=== PATIENT | female | born 1990 | race Caucasian/White ===

== ENCOUNTER 2023-06-06 23:30 | Inpatient (IN) | payer MEDICARE, MEDICAID, SELFPAY ==
[2023-06-06 23:34] VITALS: BP 118/62; PULSE 89; RESP 20; TEMP 36.6; O2SAT 100
[2023-06-06 23:36] VITALS: BMI 23.1
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
--- NOTE | 2023-06-07 02:11 | PC.NURSE ---
ER NURSE REPORTED THAT PT WAS DIABETIC, WHEN THIS RN ASKED PT IF SHE WAS DIABETIC SHE STATED WELL I TAKE SOMETHING, SOMETIMES I THINK I'M DIABETIC BUT I THINK TODAY MAYBE I'M NOT. ER NURSE REPORTS BLOOD GLUCOSES AVERAGING 300. REVIEWED PTS MEDICATIONS THAT SHOW REBELLSUS 14 MG DAILY. NEW ORDER RECEIVED FROM DR. FERNANDES TO START ACCU CHECKS AC AND HS, MEDICATION ORDER PLACED.
--- NOTE | 2023-06-07 03:25 | PC.NURSE ---
WHEN DOING INVENTORY OF PT BELONGINGS RN/NT FOUND A LARGE MONTHY PILL CONTAINER WITH UNKNOWN MEDICATIONS IN IT. PLACED IN PIXIS WITH PT NAME TO RETURN ONCE PT IS DISCHARGED.
[2023-06-07 06:00] VITALS: BP 96/62; PULSE 96; RESP 16; TEMP 36.3; O2SAT 99
[2023-06-07 09:12] LABS: Glucose Point of Care 290 mg/dL (70-110)
--- NOTE | 2023-06-07 09:41 | PC.NURSE ---
PT CURRENTLY DENIES SI/HI/AH/VH. PT STATES IT IS THE OTHER WAY AROUND. PEOPLE ARE AFTER ME AND MY FAMILY. PEOPLE WANT TO HURT MY FAMILY AND ME. PT ENDORSED DEPRESSION RATING IT A 5/10 ON A 0-10 SCALE WHERE 0 MEANS NONE AT ALL AND 10 MEANS THE WORST. PT WAS WILLING AND COOPERATIVE WITH ASSESSMENT.
[2023-06-07] MEDS: sertraline 100 mg Tablet PO (10:11)
[2023-06-07] MEDS: pantoprazole DR 40 mg Tablet PO (10:11)
[2023-06-07] MEDS: levothyroxine 50 mcg Tablet PO (10:11)
[2023-06-07 13:03] LABS: Glucose Point of Care 344 mg/dL (70-110)
[2023-06-07] MEDS: insulin lispro 100 unit/1 mL SUBCUT (13:16)
[2023-06-07 14:00] VITALS: BP 110/72; PULSE 72; RESP 20; TEMP 36.9; O2SAT 99
[2023-06-07] MEDS: OLANZapine 5 mg ODT PO (14:39)
--- NOTE | 2023-06-07 17:42 | W.PM.NPUH&PS ---
Providers/Chief Complaint Admitting Physician: Barak Lanier MD Chief Complaint: Hearing Voices HPI NPU History of Present Illness Jany Tadeo is a 32 year old female who presented to [facility] emergency department on 06/06/2023 having been brought in by emergency medical services. The patient had endorsed hearing voices and had reported having feelings that people around her are trying to steal her farm and her home and that she reported feeling that she was involved in the middle of a drug war. She reported that she is not Muslim and does not know why they would be attacking me . Patient was admitted to the neuropsychiatric unit for further evaluation and treatment. The patient reports that she is fearful that others around her are going to hurt herself. She had endorsed that hospitals were somehow involved in this plot to harm her. She reports that she wishes to be transferred as she had recently been hospitalized at [facility] a few weeks ago and was set to enter into an extended living facility. Patient reported great Nations will fall . She had endorsed feeling depressed and anxious about her situation. Patient reports that she does not feel safe anywhere. The patient had tested positive for amphetamines on admission but states that she was not using methamphetamine. She states that she had recently slept with another person and maybe that is how she had tested positive for it. The patient had reported that she had been noncompliant with her medications (zyprexa) that were given to her in her last hospitalization last month. Patient had reported that she believes that other people are trying to steal something from her. She reports no other drug use at this time despite positive amphetamine on urine drug screen. Inpatient psychiatric history: She reports greater than 10 inpatient hospitalizations. [facility] Outpatient psychiatric history: Unknown Medical history: Hypothyroidism, GERD, type 2 diabetes? Surgical history: None reported Allergies: Amoxicillin, penicillin, sulfa drugs Current medications: Lipitor, levothyroxine 100 mg daily, olanzapine 10 mg at night, omeprazole 20 mg daily, Rybelsus, Zoloft 100 mg daily Drug and alcohol history: Per previous records there is an extended history of methamphetamine abuse with induction of psychosis Social history: She reports living in [facility] with her mother. She reports that she has no children and has never been . She reports that she was adopted at 3 months old as her biological parents had struggled with managing care. She currently lives with her adopted mother and was raised by her maternal grand parent. She has half siblings who she has limited contact with. She had reported a history of learning problems growing up having been diagnosed with dyslexia and ADHD. She had obtained a high school diploma. 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 She did not reveal any past history of sexual physical or emotional abuse. Meds NPU Home Medications Medication Instructions Recorded Confirmed Last Taken Type levothyroxine 100 mcg capsule 100 mcg PO DAILY 06/06/23 06/06/23 Unknown History olanzapine 10 mg tablet 10 mg PO BEDTIME 06/06/23 06/06/23 Unknown History omeprazole 20 mg capsule,delayed 20 mg PO DAILY 06/06/23 06/06/23 Unknown History release pantoprazole 40 mg tablet,delayed 40 mg PO DAILY 06/06/23 06/06/23 Unknown History release atorvastatin 10 mg tablet (Lipitor) 10 mg PO BEDTIME 06/07/23 06/07/23 05/31/23 History semaglutide 14 mg tablet (Rybelsus) 14 mg PO DAILY DIABETES 06/07/23 06/07/23 3 Days Ago History ~06/04/23 sertraline 100 mg tablet (Zoloft) 100 mg PO DAILY 06/07/23 06/07/23 05/31/23 History Allergies Allergy/AdvReac Type Severity Reaction Status Date / Time amoxicillin Allergy Severe ALGY-Anaphy Verified 06/07/23 00:21 laxis Penicillins Allergy Severe ALGY-Anaphy Verified 06/07/23 00:21 laxis sulfacetamide Allergy Severe ALGY-Anaphy Verified 06/07/23 00:21 laxis Mental Status Exam MSE Comments: Patient was extremely guarded on interview. She appeared to be a thin white female who appeared older than her stated age with poor hygiene and a steady gait. There is no evidence of any abnormal involuntary motor movements tics or tremors. There was some evidence of psychomotor slowing. Her speech showed evidence of increased latency with normal volume and dysrhythmic speech. She was tearful throughout the interview. Repeated themes during the interview included feelings that she was being watched. Her mood was described as upset. Her affect was odd. She denied any homicidal or suicidal ideation. There was clear evidence of bizarre delusions. There was significant ideas of reference. She was alert and oriented to person and place but refused to answer questions or regarding date or year. Her insight is poor. Her judgment is poor. Her impulse control appeared limited. Vitals/I&O/Wt Last Vital Signs Temp 98.4 F 06/07/23 14:00 Pulse 72 06/07/23 14:00 Resp 20 H 06/07/23 14:00 BP 110/72 06/07/23 14:00 Pulse Ox 99 06/07/23 14:00 O2 Del Method Room Air 06/07/23 06:00 Weight last 48 hrs Weight 61.235 kg A&P Assessment and plan (1) Psychotic disorder: (2) Substance-induced psychotic disorder: (3) Methamphetamine dependence: Plan 32-year-old white female transferred from [place] with psychosis while positive for methamphetamine use and a history of multiple inpatient psychiatric hospitalizations. 1. Encourage individual, group and milieu therapy. 2. Recommend sober living treatment at the highest level of care to which the patient is willing to commit. 3. Continue q-15 minute checks for safety.? 4.? Restart current medications including zoloft, lipitor, olanzapine and sertraline, Patient placed on mild sliding scale insulin with low carb diet. 5.? Will attempt to gather collateral information. Attestations NPU Medical Necessity Statement*: Inpatient hospitalization is medically necessary and deemed to ?be ?the clinically appropriate intervention ?at this time.? We will monitor/initiate medications and make changes as indicated.? The patient will be in the hospital for over 2 midnights.? The patient?s likely length of stay 7-10 days. Coding Level of Care Code Acute Code for [facility] Fwd Diagnoses Psychotic disorder F29 Substance-induced psychotic disorder F19.959 Methamphetamine dependence F15.20
[2023-06-07 18:04] LABS: Glucose Point of Care 139 mg/dL (70-110)
[2023-06-07] MEDS: OLANZapine 10 mg TABLET PO (20:40)
[2023-06-07] MEDS: atorvastatin 40 mg Tablet 20 MG PO (20:40)
[2023-06-07 20:44] VITALS: BP 98/62; PULSE 80; RESP 16; TEMP 36.8; O2SAT 99
[2023-06-07 20:44] LABS: Glucose Point of Care 151 mg/dL (70-110)
--- NOTE | 2023-06-07 20:57 | PC.NURSE ---
IN ROOM RESTING AROUSES TO VOICE. DENIES PAIN. DENIES SI/HI AND AVH AT THIS TIME. PT IS NOTED TO HAVE A FLAT AFFECT WITH MINIMAL EYE CONTACT. IS OBSERVED TO BE PARANOID. RATES DEPRESSION 0/10 AND ANXIETY 0/10. PT APPEARS TO NO COMPREHEND AT TIMES WHEN RN SPEAKING. PT CONTINUES TO BE PARANOID AND UNTRUSTING OF STAFF AND PEERS AROUND HER. PT STAYS ISOLATED TO ROOM. ENCOURAGED TO INTERACT BUT DECLINES. PT TOOK MEDICATIONS WITHOUT ISSUE. SUPPORT VOICED.
[2023-06-08 06:00] VITALS: BP 125/84; PULSE 66; RESP 16; O2SAT 95
[2023-06-08 08:29] LABS: Glucose Point of Care 218 mg/dL (70-110)
--- NOTE | 2023-06-08 11:39 | PC.NURSE ---
refused scheduled morning meds, offered 3 separate times by nursing staff to take meds, patient refused all 3 times saying no not now, I'm too tired
[2023-06-08 12:18] LABS: Glucose Point of Care 178 mg/dL (70-110)
[2023-06-08] MEDS: insulin lispro 100 unit/1 mL SUBCUT ×2 (12:21→17:40)
[2023-06-08 14:00] VITALS: BP 94/61; PULSE 70; RESP 20; TEMP 36.8; O2SAT 95
[2023-06-08 17:22] LABS: Glucose Point of Care 176 mg/dL (70-110)
--- NOTE | 2023-06-08 17:46 | W.PM.NPUPNS ---
Subjective NPU Subjective: Patient is a 32-year-old white female admitted with psychosis likely secondary to methamphetamine use. She had reported that she felt drowsy and did not wish to further participate in interview. She had stated that she was satisfied about taking her medications. She had an endorsed noncompliance with her Zyprexa prior to her admission. She remained on a sliding scale with considerable elevation in sugars. The patient continued to report feeling fearful that others were trying to kill her. She had continued to complain that ' A great war was coming. Mental Status Exam MSE Comments: Patient was extremely guarded on interview as she was lying in bed and refusing to answer any questions stating that she was drowsy. There is no evidence of any abnormal involuntary motor movements tics or tremors. There was some evidence of psychomotor slowing. Her speech showed evidence of increased latency with normal volume and dysrhythmic speech. She did appear to be responding to internal stimuli. Her mood was described as fine. Her affect was odd and subdued. . She denied any homicidal or suicidal ideation. There was clear evidence of paranoia There was significant ideas of reference. She was alert and oriented to person and place but refused to answer questions or regarding date or year. Her insight is poor. Her judgment is poor. Her impulse control appeared limited. Vitals/I&O/Wt Last Vital Signs Temp 98.2 F 06/08/23 14:00 Pulse 70 06/08/23 14:00 Resp 20 H 06/08/23 14:00 BP 94/61 06/08/23 14:00 Pulse Ox 95 06/08/23 14:00 O2 Del Method Room Air 06/08/23 14:00 Weight last 48 hrs Weight 61.235 kg A&P Assessment and plan (1) Psychotic disorder: (2) Substance-induced psychotic disorder: (3) Methamphetamine dependence: Plan 32-year-old white female transferred from [place] with psychosis while positive for methamphetamine use and a history of multiple inpatient psychiatric hospitalizations. 1. Encourage individual, group and milieu therapy. 2. Recommend sober living treatment at the highest level of care to which the patient is willing to commit. 3. Continue q-15 minute checks for safety.? 4.? Restart current medications including zoloft, lipitor, olanzapine and Synthroid. Patient placed on mild sliding scale insulin with low carb diet. Monitor blood sugars and medical consult for further input. 5.? Will attempt to gather collateral information. Attestations NPU Medical Necessity Statement*: Inpatient hospitalization is medically necessary and deemed to ?be ?the clinically appropriate intervention ?at this time.? We will monitor/initiate medications and make changes as indicated.? ? The patient?s likely length of stay 7-10 days. Coding Level of Care Code Acute Code for [facility] Fwd Diagnoses Psychotic disorder F29 Substance-induced psychotic disorder F19.959 Methamphetamine dependence F15.20
[2023-06-08 20:01] LABS: Glucose Point of Care 191 mg/dL (70-110)
[2023-06-08] MEDS: atorvastatin 40 mg Tablet 20 MG PO (20:18)
[2023-06-08] MEDS: OLANZapine 10 mg TABLET PO (20:18)
[2023-06-08 20:33] VITALS: BP 95/63; PULSE 86; RESP 18; TEMP 36.8; O2SAT 97
[2023-06-09 06:00] VITALS: BP 106/67; PULSE 62; RESP 16; TEMP 36.6; O2SAT 96
[2023-06-09 07:54] LABS: Glucose Point of Care 185 mg/dL (70-110)
[2023-06-09] MEDS: levothyroxine 50 mcg Tablet PO (08:02)
[2023-06-09] MEDS: pantoprazole DR 40 mg Tablet PO (08:02)
[2023-06-09] MEDS: sertraline 100 mg Tablet PO (08:02)
--- NOTE | 2023-06-09 08:39 | PC.NURSE ---
pt came to nurses desk for glass of water. pt asked what her bloodsugar was when asked if she was ready to take her insulin. I informed pt that it was 185 and she had just eaten a full breakfast. pt stated no she did not want to take it because she did not want to ! attempts to talk with her on the importance of taking her medication. pt continued to refused.
--- NOTE | 2023-06-09 12:21 | PC.NURSE ---
patient eligible for 4 units insulin per blood glucose results. patient doesn't want to take the insulin at this time; patient concerned that her blood glucose will bottom out.
[2023-06-09 12:31] LABS: Glucose Point of Care 172 mg/dL (70-110)
[2023-06-09 14:00] VITALS: BP 90/56; PULSE 77; RESP 16; TEMP 36.8; O2SAT 97
--- NOTE | 2023-06-09 14:31 | P.NPUPN_ITS ---
Subjective NPU Subjective: Patient is a 32-year-old white female admitted with psychosis likely secondary to methamphetamine use. Patient remained confused on the milieu. She had reported that she was feeling safer but still stated that she felt that others were trying to harm her. The patient appeared perplexed when the investment underwriter spoke of her past use of methamphetamine. The patient had stated that she was not distracted by her thoughts. She appeared quiet and somewhat isolative on the milieu. She had acknowledged feeling depressed today. Mental Status Exam MSE Comments: Patient was less guarded on interview today. There is no evidence of any abnormal involuntary motor movements tics or tremors. There was some evidence of psychomotor slowing. Her speech was slow and decreased in volume with perio ds of increased latency. She did appear to be responding to internal stimuli. Her mood was described as depressed. Her affect remained odd and subdued. She denied any homicidal or suicidal ideation. There was clear evidence of paranoia. There was significant ideas of reference. She was alert and oriented to person and place but not date or day of the week. Her insight is poor. Her judgment is poor. Her impulse control appeared limited. Vitals/I&O/Wt Last Vital Signs Temp 97.8 F 06/09/23 06:00 Pulse 62 06/09/23 06:00 Resp 16 06/09/23 06:00 BP 106/67 06/09/23 06:00 Pulse Ox 96 06/09/23 06:00 O2 Del Method Room Air 06/09/23 06:00 A&P Assessment and plan (1) Psychotic disorder: (2) Substance-induced psychotic disorder: (3) Methamphetamine dependence: Plan 32-year-old white female transferred from [place] with psychosis while positive for methamphetamine use and a history of multiple inpatient psychiatric hospitalizations. 1. Encourage individual, group and milieu therapy. 2. Recommend sober living treatment at the highest level of care to which the patient is willing to commit. 3. Continue q-15 minute checks for safety.? 4.?Continue zoloft, increase olanzapine 15mg at night. Patient placed on mild sliding scale insulin with low carb diet. Monitor blood sugars and medical consult for further input. 5.? Will attempt to gather collateral information. Attestations NPU Medical Necessity Statement*: Inpatient hospitalization is medically necessary and deemed to ?be ?the clinically appropriate intervention ?at this time.? We will monitor/initiate medications and make changes as indicated.? ? The patient?s likely length of stay 7-10 days. Coding Level of Care Code Acute Code for [facility] Fwd Diagnoses Psychotic disorder F29 Substance-induced psychotic disorder F19.959 Methamphetamine dependence F15.20
[2023-06-09 17:19] LABS: Glucose Point of Care 165 mg/dL (70-110)
[2023-06-09] MEDS: insulin lispro 100 unit/1 mL SUBCUT (18:06)
[2023-06-09] MEDS: OLANZapine 5 mg ODT PO (18:45)
--- NOTE | 2023-06-09 18:46 | PC.NURSE ---
Patient reports anxiety 02/24. administered Zyprexa 5mg ODT to patient. Per patient, vistaril doesn't work well for her.
[2023-06-09] MEDS: OLANZapine 10 mg TABLET PO (20:03)
[2023-06-09] MEDS: atorvastatin 40 mg Tablet 20 MG PO (20:03)
[2023-06-09 20:19] VITALS: BP 115/72; PULSE 76; RESP 16; TEMP 36.9; O2SAT 98
[2023-06-09 20:28] LABS: Glucose Point of Care 252 mg/dL (70-110)
[2023-06-10 06:00] VITALS: BP 101/62; PULSE 69; RESP 18; O2SAT 95
[2023-06-10] MEDS: levothyroxine 50 mcg Tablet PO (08:38)
[2023-06-10] MEDS: pantoprazole DR 40 mg Tablet PO (08:38)
[2023-06-10] MEDS: insulin lispro 100 unit/1 mL SUBCUT ×2 (08:40→18:04)
[2023-06-10 08:44] LABS: Glucose Point of Care 216 mg/dL (70-110)
[2023-06-10 11:51] LABS: Glucose Point of Care 128 mg/dL (70-110)
[2023-06-10 14:00] VITALS: BP 127/88; PULSE 82; RESP 17; TEMP 36.4; O2SAT 99
--- NOTE | 2023-06-10 15:48 | DCPLANNER ---
IMM WAS GIVEN
[2023-06-10] MEDS: OLANZapine 5 mg ODT PO (16:28)
[2023-06-10 16:41] LABS: Bacteria Urine TRACE /hpf; Bilirubin Urine Neg (Negative); Blood Urine Neg (Negative); Glucose Urine UA Norm (Normal); Ketones Urine Negative (Negative); Leukocyte Esterase Urine Negative (Negative); Nitrate Urine Negative (Negative); Protein Urine Neg (Negative); RBC Urine RARE /hpf (0-2); Urine Appearance SL Hazy (CLEAR); Urine Color Light yellow (Yellow); Urobilinogen Urine Norm (Negative); WBC Urine RARE /hpf (0-5)
[2023-06-10 16:42] LABS: pH Urine 5 (5-7)
--- NOTE | 2023-06-10 16:44 | DCPLANNER ---
Imm was printed and given to pt and copy placed in file.
--- NOTE | 2023-06-10 16:45 | W.PM.NPUPNS ---
Subjective NPU Subjective: Patient is a 32-year-old white female admitted with psychosis secondary to methamphetamine use. She had minimized the effects of methamphetamine on her most recent hospitalization here. The patient stated that she was ready to go home. She reports that she had a place to live and would take her medications as prescribed. Patient had stated that she had been receiving outpatient services and reported that these medications had been previously started by a psychiatrist somewhere near [place]. Patient appeared minimally engaged in treatment here. She had expressed far less concern regarding her safety stating that she did not feel like others were trying to harm her today. She had briefly attended groups. She had stated that she was on a waiting list to receive more extended services for dual diagnosis treatment in [place]. Mental Status Exam MSE Comments: She was lying in bed with her body covered other than her face that was appearing out of the blankets. Patient was less guarded on interview today. There is no evidence of any abnormal involuntary motor movements tics or tremors. There was some evidence of psychomotor slowing. Her speech was slow and decreased in volume with continued increased latency. She did not appear to be responding to internal stimuli. Her mood was described as okay. Her affect remained flat. She denied any homicidal or suicidal ideation. There was clear evidence of paranoia. There was significant ideas of reference. She was alert and oriented to person and place but not date or day of the week. Her insight is poor. Her judgment is poor. Her impulse control appeared limited. Vitals/I&O/Wt Last Vital Signs Temp 97.6 F 06/10/23 14:00 Pulse 82 06/10/23 14:00 Resp 17 06/10/23 14:00 BP 127/88 06/10/23 14:00 Pulse Ox 99 06/10/23 14:00 O2 Del Method Room Air 06/09/23 20:19 A&P Assessment and plan (1) Psychotic disorder: (2) Substance-induced psychotic disorder: (3) Methamphetamine dependence: Plan 32-year-old white female transferred from [place] with psychosis while positive for methamphetamine use and a history of multiple inpatient psychiatric hospitalizations. 1. Encourage individual, group and milieu therapy. 2. Recommend sober living treatment at the highest level of care to which the patient is willing to commit. 3. Continue q-15 minute checks for safety.? 4.?Continue zoloft, continue olanzapine 10mg at night. Patient placed on mild sliding scale insulin with low carb diet. Monitor blood sugars and medical consult for further input. 5.? Will attempt to gather collateral information. Patient appears to be improving with decrease in paranoia. Attestations NPU Medical Necessity Statement*: Inpatient hospitalization is medically necessary and deemed to ?be ?the clinically appropriate intervention ?at this time.? We will monitor/initiate medications and make changes as indicated.? ? The patient?s likely length of stay 1-2 days. Coding Level of Care Code Acute Code for [facility] Fwd Diagnoses Psychotic disorder F29 Substance-induced psychotic disorder F19.959 Methamphetamine dependence F15.20
[2023-06-10 17:08] LABS: Glucose Point of Care 302 mg/dL (70-110)
[2023-06-10 20:01] LABS: Glucose Point of Care 195 mg/dL (70-110)
[2023-06-10 20:02] VITALS: BP 116/74; PULSE 74; RESP 16; TEMP 37.1; O2SAT 98
[2023-06-10] MEDS: atorvastatin 40 mg Tablet 20 MG PO (20:16)
[2023-06-10] MEDS: OLANZapine 10 mg TABLET PO (20:16)
[2023-06-11 06:00] VITALS: BP 117/70; PULSE 80; RESP 14; TEMP 37.1; O2SAT 98
[2023-06-11] MEDS: pantoprazole DR 40 mg Tablet PO (08:12)
[2023-06-11] MEDS: levothyroxine 50 mcg Tablet PO (08:12)
[2023-06-11 08:17] LABS: Glucose Point of Care 300 mg/dL (70-110)
[2023-06-11] MEDS: insulin lispro 100 unit/1 mL SUBCUT ×2 (08:23→12:09)
--- NOTE | 2023-06-11 11:20 | P.NPUDS_ITS ---
Diagnoses at Discharge Discharge Diagnosis (1) Psychotic disorder: Status: Acute (2) Substance-induced psychotic disorder: Status: Acute (3) Methamphetamine dependence: Status: Acute Reason for Visit Reason for Visit: Hearing Voices Brief History: HPI NPU CC: Hearing Voices History of Present Illness Jany Tadeo is a 32 year old female who presented to [facility] emergency department on 06/06/2023 having been brought in by emergency medical services.? The patient had endorsed hearing voices and had reported having feelings that people around her are trying to steal her farm and her home and that she reported feeling that she was involved in the middle of a drug war.? She reported that she is not Mu-Ism and does not know why they would be attacking me . Patient was admitted to the neuropsychiatric unit for further evaluation and treatment.? The patient reports that she is fearful that others around her are going to hurt herself.? She had endorsed that hospitals were somehow involved in this plot to harm her.? She reports that she wishes to be transferred as she had recently been hospitalized at [facility] a few weeks ago and was set to enter into an extended living facility.? Patient reported [place] will [place] .? She had endorsed feeling depressed and anxious about her situation.? Patient reports that she does not feel safe anywhere.? The patient had tested positive for amphetamines on admission but st ates that she was not using methamphetamine.? She states that she had recently slept with another person and maybe that is how she had tested positive for it.? The patient had reported that she had been noncompliant with her medications (zyprexa) that were given to her in her last hospitalization last month.? Patient had reported that she believes that other people are trying to steal something from her.? She reports no other drug use at this time despite positive amphetamine on urine drug screen.? Inpatient psychiatric history: She reports greater than 10 inpatient hospitalizations.? She reports most recent hospitalization having occurred at [facility] in [facility] month ago. Outpatient psychiatric history: Unknown Medical history: Hypothyroidism, GERD, type 2 diabetes? Surgical history: None reported Allergies: Amoxicillin, penicillin, sulfa drugs Current medications: Lipitor, levothyroxine 100 mg daily, olanzapine 10 mg at night, omeprazole 20 mg daily, Rybelsus, Zoloft 100 mg daily Drug and alcohol history: Per previous records there is an extended history of methamphetamine abuse with induction of psychosis Social history: She reports living in [facility] with her mother.? She reports that she has no children and has never been .? She reports that she was adopted at 3 months old as her biological parents had struggled with managing care.? She currently lives with her adopted mother and was raised by her maternal grand parent.? She has half siblings who she has limited contact with.? She had reported a history of learning problems growing up having been diagnosed with dyslexia and ADHD.? She had obtained a high school diploma.? 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 She did not reveal any past history of sexual physical or emotional abuse. Hospital Course Hospital Course During the hospitalization, the patient had routine laboratory studies which were within normal limits except for a few outliers.? Additionally, there was a general medical evaluation which was also within normal limits and revealed no new acute processes.? At the time of discharge, lethality was denied and psychosis was resolving.? Mood and anxiety were well managed.? The patient endorsed a plan to avoid all drugs of abuse and follow up with the aftercare recommendations of the treatment team.? The patient was evaluated and deemed to be absent credible lethality and had achieved the maximum benefit from an inpatient hospitalization, and so was discharged. ? Mental Status Exam MSE Comments: She was a casually dressed white female who appeared her stated age. She appeared in no acute distress today. There is no evidence of any abnormal involuntary motor movements tics or tremors. There was some evidence of mild psychomotor slowing. Her speech was normal in regards to volume, rate and prosody. She did not appear to be responding to internal stimuli. Her mood was described as allright. Her affect remained slightly restricted. She denied any homicidal or suicidal ideation. There was no evidence of paranoia and no overt ideas of reference. She was alert and oriented to person and place and time today. Her insight is limited. Her judgment is fair. Her impulse control appeared adequate. Discharge Data Studies Completed and Pending: Laboratory Results POC Glucose 300 mg/dL (70-110 ) H 06/11/23 08:14 Urine Color Light yellow (Ye llow) 06/10/23 15:45 Urine Appearance Sl hazy (CLEAR) A 06/10/23 15:45 Urine pH 5 (5-7) 06/10/23 15:45 Ur Specific Gravit y 1.010 (1.005-1.0 30) 06/10/23 15:45 Urine Protein Neg (Negative) 06/10/23 15:45 Urine Glucose (UA) Norm (Normal) 06/10/23 15:45 Urine Ketones Negative (Negati ve) 06/10/23 15:45 Urine Blood Neg (Negative) 06/10/23 15:45 Urine Nitrate Negative (Negati ve) 06/10/23 15:45 Urine Bilirubin Neg (Negative) 06/10/23 15:45 Urine Urobilinogen Norm mg/dL (Negat suha) 06/10/23 15:45 Ur Leukocyte Charlotte ase Negative (Negati ve) 06/10/23 15:45 Urine RBC Rare /hpf (0-2) 06/10/23 15:45 Urine WBC Rare /hpf (0-5) 06/10/23 15:45 Ur Squamous Epith Cells None /hpf (0-5) 06/10/23 15:45 Amorphous Sediment Not Reportable 06/10/23 15:45 Urine Bacteria Trace /hpf (NONE) 06/10/23 15:45 Vitals: Last Vital Signs Temp 98.8 F 06/11/23 06:00 Pulse 80 06/11/23 06:00 Resp 14 06/11/23 06:00 BP 117/70 06/11/23 06:00 Pulse Ox 98 06/11/23 06:00 O2 Del Method Room Air 06/11/23 06:00 Discharge Plan Discharge Patient Disposition: Home Condition: Stable Prescriptions: Continued pantoprazole 40 mg Tablet,Delayed Release (Dr/Ec) 40 mg PO DAILY omeprazole 20 mg Capsule,Delayed Release(Dr/Ec) 20 mg PO DAILY levothyroxine 100 mcg Capsule 100 mcg PO DAILY Rybelsus 14 mg tablet 14 mg PO DAILY Lipitor 10 mg tablet 10 mg PO BEDTIME olanzapine 10 mg Tablet 10 mg PO BEDTIME 30 Days Qty: 30 1RF Discontinued Zoloft 100 mg tablet 100 mg PO DAILY Discharge Orders: Discharge Order (Routine); Ordered 06/11/23 Ordered By: Arsenio Aceves Referrals: [facility] [Other] (Due to holiday and phone sevice not working you will need to call and make appointment.) [facility]- Dr. Chaves [Other] - 06/15/23 10:00 am (Follow up) [facility] [Other] Discharge Diet: Usual diet Discharge Activity: Resume usual activity Patient Instructions: Opioid Safety Discharge Attestations NPU Time Spent in Discharge Care*: less than 30 min Specific Discharge Activities: Specific discharge activities: educating patient, discussing with outsole caser/social workers/dc planners and documenting/other paperwork Coding Level of Care Code Acute [facility] DC note Diagnoses Psychotic disorder F29 Substance-induced psychotic disorder F19.959 Methamphetamine dependence F15.20
[2023-06-11 11:29] LABS: Glucose Point of Care 183 mg/dL (70-110)
[2023-06-11 12:15] VITALS: BP 117/70; PULSE 80; RESP 14; TEMP 37.1; O2SAT 98
== END 2023-06-11 13:18 | disposition home or self-care (01) | DRG 897 ==
PROVIDERS: Admitting Provider Psychiatry & Neurology Psychiatry; Visit Provider Psychiatry & Neurology Psychiatry
DX: F15.259 Other stimulant dependence with stimulant-induced psychotic disorder, unspecified (principal); E03.9 Hypothyroidism, unspecified; E11.9 Type 2 diabetes mellitus without complications; K21.9 Gastro-esophageal reflux disease without esophagitis; Z91.148 Patient's other noncompliance with medication regimen for other reason
CPT/HCPCS: 36416; 81001; 82962; 96372; 97150; 97165; J1815